=== PATIENT | female | born 1995 | race Caucasian/White ===

== ENCOUNTER 2016-07-13 15:17 | Emergency (ER) | payer OTHER ==
[~2016-07-13] VITALS: Ht 157.5 cm; Wt 63.5 kg
[2016-07-13 15:38] VITALS: BP 128/87
--- NOTE | 2016-07-13 15:53 | NUR ---
PATIENT TO BED 03.
--- NOTE | 2016-07-13 16:09 | NUR ---
Dr. Dickens evaluating patient at bedside.
--- NOTE | 2016-07-13 16:10 | NUR ---
PATIENT PRESENTS TO ED WITH RLQ ABD PAIN X1 HOUR; DENIES V/D; SKIN IS PINK/WARM/DRY; AAOX4 WITH EVEN AND STEADY GAIT; LUNGS CLEAR BL; HR EVEN AND REGULAR; PT DENIES ANY FEVER, CP, SOB, OR COUGH AT THIS TIME; PATIENT STATES PAIN OF 10/10 AT THIS TIME; VSS; PATIENT POSITIONED FOR COMFORT; HOB ELEVATED; BEDRAILS UP X2; BED DOWN. ER MD MADE AWARE OF PT STATUS.
[2016-07-13] MEDS ORDERED: ONDANSETRON 4 MG/2 ML VIAL IVP ONE (16:15)
[2016-07-13] MEDS ORDERED: NACL 0.9% 1,000 ML IV ONE (16:15)
[2016-07-13] MEDS ORDERED: KETOROLAC 30 MG/ML VIAL IVP ONE (16:15)
[2016-07-13 18:10] VITALS: BP 116/63
--- NOTE | 2016-07-13 18:10 | NUR ---
Patient discharged with v/s stable. Written and verbal after care instructions given and explained.Patient alert, oriented and verbalized understanding of instructions. Ambulatory with steady gait. All questions addressed prior to discharge. ID band removed. Patient advised to follow up with PMD. Rx of LACTULOSE, MAGNESIUM CITRATE, TRAMADOL given. Patient educated on indication of medication including possible reaction and side effects. Opportunity to ask questions provided and answered.
== END 2016-07-13 18:10 | disposition home or self-care (01) ==
LOC: MED 15:24
DX: K59.00 Constipation, unspecified (principal); R03.0 Elevated blood-pressure reading, without diagnosis of hypertension
CPT/HCPCS: 74022; 81002; 81025; 96361; 96374; 96375; 99284; J1885; J2405; J7030

== ENCOUNTER 2016-12-07 19:36 | Emergency (ER) | payer OTHER ==
[~2016-12-07] VITALS: Ht 144.8 cm; Wt 61.7 kg
[2016-12-07 19:57] VITALS: BP 139/91
[2016-12-07] MEDS ORDERED: IMI6I PO (20:02)
--- NOTE | 2016-12-07 20:42 | NUR ---
Patient ambulated to bed 08.
--- NOTE | 2016-12-07 20:45 | NUR ---
21 Y/O F C/O HEADACHE, N/V X 1 WK PT SEEN PMD ON 12/04, HAS RX FOR IMITREX, SUDOGEST AND PROMETHAZINE. MED HX: NONE. PT RESTING COMFORTABLE, ER MADE AWARE.
[2016-12-07] MEDS ORDERED: diphenhydrAMINE 50 MG/ML VIAL IM ONE (21:00)
[2016-12-07] MEDS ORDERED: PROCHLORPERAZINE 10 MG/2 ML VIAL IM ONE (21:00)
--- NOTE | 2016-12-07 21:36 | NUR ---
Patient taken to CT via wheelchair per tech.
--- NOTE | 2016-12-07 21:51 | NUR ---
Patient back from CT via wheelchair per tech.
--- NOTE | 2016-12-07 22:01 | NUR ---
PT LAYING IN BED COMFORTABLE, VSS. NO S/S OF DISTRESS NOTED AT THIS MOMENT.
[2016-12-07 22:18] VITALS: BP 118/69
--- NOTE | 2016-12-07 22:18 | NUR ---
Patient discharged with v/s stable. Written and verbal after care instructions given and explained. Patient alert, oriented and verbalized understanding of instructions. Ambulatory with steady gait. All questions addressed prior to discharge. ID band removed. Patient advised to follow up with PMD OR RETURN TO ER IF CONDITION WORSENS. Rx of BENADRYL AND COMPAZINE given. Patient educated on indication of medication including possible reaction and side effects. Opportunity to ask questions provided and answered.
== END 2016-12-07 22:18 | disposition home or self-care (01) ==
LOC: MED 19:36
DX: R51 Headache (principal); R11.2 Nausea with vomiting, unspecified; H53.149 Visual discomfort, unspecified
CPT/HCPCS: 70450; 96372; 99284; J0780; J1200

== ENCOUNTER 2017-05-22 22:45 | Emergency (ER) | payer OTHER ==
[~2017-05-22] VITALS: Ht 134.6 cm; Wt 61.4 kg
[~2017-05-22 22:45] MED LIST: IMI6I PO
[2017-05-22 22:56] VITALS: BP 139/93
--- NOTE | 2017-05-22 23:09 | NUR ---
TO ER BED2
[2017-05-22] MEDS ORDERED: MORPHINE SULFATE 4 MG/ML SYR IVP ONE (23:25)
[2017-05-22] MEDS ORDERED: ONDANSETRON 4 MG/2 ML VIAL IVP ONE (23:25)
[2017-05-22] MEDS ORDERED: NACL 0.9% 1,000 ML IV ONE (23:25)
[2017-05-22 23:53] LABS: HEMATOCRIT 39.5 % (36-48); HEMOGLOBIN 13.2 g/dL (12.0-16.0); MEAN CORPUSCULAR HEMOGLOBIN 28 pg (27-31); MEAN CORPUSCULAR HGB CONC 33 g/dL (33-37); MEAN CORPUSCULAR VOLUME 84 fL (80-94); PLATELET COUNT (AUTO) 307 K/uL (140-450); RED CELL DISTRIBUTION WIDTH 12.8 % (11.6-13.7); WHITE BLOOD COUNT (AUTO) 9.9 K/uL (4.8-10.8)
--- NOTE | 2017-05-23 | NUR ---
PT ARRIVED AT ED WITH FATER C/O UPPER ABDOMINAL AND LOWER BACK PAIN SINCE LAST NIGHT. PT STATES PAIN WITH AMBULATION. ABDOMEN SOFT AND TENDER. VSS. PT DENIES N/V/D AND STATES HAVING NORMAL GI AND HABBITS. PT IN BED IN POC WITH HOB ELEVATED. MD AWARE. CONTINUE TO MONITOR.
[2017-05-23 00:07] LABS: ANION GAP 10.8 (8-16); CARBON DIOXIDE 28.7 mmol/L (21-32); CHLORIDE 103 mmol/L (98-107); GFR ARICAN-AMERICAN 89 mL/min (>90); GLUCOSE 111 mg/dL (74-106); POTASSIUM 3.5 mmol/L (3.5-5.1); SODIUM SERUM 139 mmol/L (136-145); UREA NITROGEN, BLOOD 10 mg/dL (7-18)
[2017-05-23 00:13] LABS: LYMPHOCYTES % (MANUAL) 14 % (20-46); MONOCYTES % (MANUAL) 3 % (5-12)
[2017-05-23 00:19] LABS: ALBUMIN 4.2 g/dL (3.4-5.0); ASPARTATE AMINOTRANSFERASE 15 U/L (15-37); LIPASE 160 U/L (73-393); TOTAL BILIRUBIN 0.3 mg/dL (0.0-1.0)
--- NOTE | 2017-05-23 01:29 | NUR ---
PT URINE NOT COLLECTED. PT UNABLE TO PROVIDE SAMPLE. DR MEEK GAVE ORDER FOR HCG ANALYSIS VIA BLOOD SAMPLE. PT IN BED RESTING WITH HOB ELEVATED. FATER AT BEDSIDE. PAIN DECREASED TO 5/10. A&OX4. AWARE. CONTINUE TO MONITOR.
--- NOTE | 2017-05-23 02:30 | NUR ---
Pt taken to CT via [facility]. Accompanied by
--- NOTE | 2017-05-23 02:50 | NUR ---
pt returned from ct via [facility]
--- NOTE | 2017-05-23 03:05 | NUR ---
pt in bed in poc with HOB elevated. states pain 06/12. fater at bedside. aware. continue to monitor.
[2017-05-23 03:38] LABS: APPEARANCE,URINE CLEAR (CLEAR); BILIRUBIN,URINE NEGATIVE (NEGATIVE); BLOOD, URINE TRACE-I (NEGATIVE); COLOR,URINE YELLOW (YELLOW); LEUKOCYTE ESTERASE ,URINE NEGATIVE (NEGATIVE); NITRITE, URINE NEGATIVE (NEGATIVE); UGLUCOSE NEGATIVE (NEGATIVE)
--- NOTE | 2017-05-23 03:40 | NUR ---
Pt urinated and provided specimen. Lab called for urine pick up operator.
[2017-05-23 03:47] LABS: RBC,URINE 3-10 (FEW) /HPF (0-5); WBC,URINE 0-5 (RARE) /HPF (0-5)
[2017-05-23 03:49] LABS: BARBITURATE, URINE NEGATIVE ng/ml (NEG <=200); BENZODIAZEPINE, URINE NEGATIVE ng/mL (NEG <=200); CANNABINOID, URINE NEGATIVE ng/mL (NEG <=50); COCAINE, URINE NEGATIVE ng/mL (NEG <=300); OPIATE, URINE NEGATIVE ng/mL (NEG <=2000); PHENCYCLIDINE SCREEN,URINE NEGATIVE ng/mL (NEG <=25)
--- NOTE | 2017-05-23 03:50 | NUR ---
at bedside. Performed bedside US of bladder. Awaiting labs. continue to monitor. Pt states she is confortable. Father at bedside. Pt in poc with HOB elevated. Continue to monitor.
[2017-05-23 04:05] VITALS: BP 130/85
--- NOTE | 2017-05-23 04:05 | NUR ---
Patient discharged with v/s stable. Pt states her pain is 0/10 at this time. Written and verbal after care instructions given and explained. Patient verbalized understanding. Ambulatory with steady gait. All questions addressed prior to discharge. Advised to follow up with PMD.
== END 2017-05-23 04:00 | disposition home or self-care (01) ==
LOC: MED 22:45
DX: R10.9 Unspecified abdominal pain (principal); R11.0 Nausea
CPT/HCPCS: 36415; 74177; 80053; 80305; 81001; 81025; 83605; 83690; 84702; 85025; 96361; 96374; 96375; 99285; G0482; J2270; J2405; J7030; Q9967

== ENCOUNTER 2017-10-07 19:31 | Emergency (ER) | payer OTHER ==
[~2017-10-07] VITALS: Ht 154.9 cm; Wt 64.6 kg
[2017-10-07 19:38] VITALS: BP 139/82
--- NOTE | 2017-10-07 19:41 | NUR ---
TO LOBBY A/W BED, LANDEN CHRIS NOTED
--- NOTE | 2017-10-07 21:08 | NUR ---
PT TAKEN TO BED 8
--- NOTE | 2017-10-07 21:29 | NUR ---
DR SANCHEZ AT BEDSIDE EVALUATING PT.
--- NOTE | 2017-10-07 21:47 | NUR ---
PT C/O LUQ PAIN X4 HOURS. ABD IS ROUND, SOFT, NON TENDER, HYPOACTIVE BS X4. PT STATES PAIN 10/0 RADIATING TO LEFT FLANK. NO PMH, NKDA
[2017-10-07 22:10] LABS: APPEARANCE,URINE SL CLOUDY (CLEAR); BILIRUBIN,URINE NEGATIVE (NEGATIVE); BLOOD, URINE TRACE-I (NEGATIVE); COLOR,URINE YELLOW (YELLOW); LEUKOCYTE ESTERASE ,URINE NEGATIVE (NEGATIVE); NITRITE, URINE NEGATIVE (NEGATIVE); PH,URINE 7.5 (5.0-9.0); UGLUCOSE NEGATIVE (NEGATIVE)
[2017-10-07] MEDS ORDERED: KETOROLAC 30 MG/ML VIAL IM ONE (22:10)
[2017-10-07] MEDS ORDERED: ONDANSETRON 4 MG ODT PO ONE (22:10)
[2017-10-07 22:38] LABS: ANION GAP 11.8 (8-16); CARBON DIOXIDE 29.5 mmol/L (21-32); CREATININE 0.8 mg/dL (0.6-1.3); POTASSIUM 4.3 mmol/L (3.5-5.1)
[2017-10-07 22:41] LABS: RBC,URINE 3-10 (FEW) /HPF (0-5); WBC,URINE 0-5 (RARE) /HPF (0-5)
[2017-10-07 22:43] LABS: ALBUMIN 3.9 g/dL (3.4-5.0); TOTAL BILIRUBIN 0.1 mg/dL (0.0-1.0)
[2017-10-07 22:46] LABS: BASOPHILS % (AUTO) 0.3 % (0.0-2.0); EOSINOPHILS # (AUTO) 0.1 K/uL (0-0.4); EOSINOPHILS % (AUTO) 0.7 % (0.0-4.0); HEMATOCRIT 39.7 % (36-48); HEMOGLOBIN 12.9 g/dL (12.0-16.0); LYMPHOCYTES # (AUTO) 1.3 K/uL (2.5-16.5); LYMPHOCYTES % (AUTO) 16.9 % (20.5-51.1); MEAN CORPUSCULAR HEMOGLOBIN 27 pg (27-31); MEAN CORPUSCULAR HGB CONC 32 g/dL (33-37); MEAN CORPUSCULAR VOLUME 84.2 fL (80-94); MONOCYTES # (AUTO) 0.5 K/uL (0.8-1.0); MONOCYTES % (AUTO) 6.6 % (1.7-9.3); NEUTROPHILS % (AUTO) 75.5 % (42.2-75.2); PLATELET COUNT (AUTO) 332 K/uL (140-450); RED BLOOD CELL COUNT(AUTO) 4.71 MIL/uL (4.20-5.40); RED CELL DISTRIBUTION WIDTH 13.8 % (11.6-13.7); WHITE BLOOD COUNT (AUTO) 7.9 K/uL (4.8-10.8)
--- NOTE | 2017-10-07 22:52 | NUR ---
pt ambulated to bathroom even steady gait.
[2017-10-08 00:21] VITALS: BP 130/80
--- NOTE | 2017-10-08 00:22 | NUR ---
Patient discharged with v/s stable. Written and verbal after care instructions given and explained. Patient alert, oriented and verbalized understanding of instructions. Ambulatory with steady gait. All questions addressed prior to discharge. ID band removed. Patient advised to follow up with PMD. Rx of MYLANTA given. Patient educated on indication of medication including possible reaction and side effects. Opportunity to ask questions provided and answered.
== END 2017-10-08 00:22 | disposition home or self-care (01) ==
LOC: MED 19:31
DX: R10.12 Left upper quadrant pain (principal)
CPT/HCPCS: 36415; 74176; 80053; 81001; 81025; 83690; 84703; 85025; 87086; 96372; 99285; J1885; S0119

== ENCOUNTER 2019-04-10 04:38 | Emergency (ER) | payer OTHER ==
[~2019-04-10] VITALS: Ht 149.9 cm; Wt 68.0 kg
[2019-04-10 04:46] VITALS: BP 136/88
--- NOTE | 2019-04-10 04:46 | NUR ---
TO BED # 12 AMBULATORY
--- NOTE | 2019-04-10 05:00 | NUR ---
PATIENT PRESENTS TO ED WITH ABD PAIN X 2 DAYS. PT STATES EPIGASTRIC PAIN THAT RADIATES TO BI LATERAL FLANK. PT STATES SHE HAS BURING WHEN URINATING. PT DENIES FREQUENCY OR URGENCY. PT DENIES LMP 03/22. PT STATES N/V DENIES DIARRHEA. ; SKIN IS PINK/WARM/DRY; AAOX4 WITH EVEN AND STEADY GAIT; LUNGS CLEAR BL; HR EVEN AND REGULAR; PT DENIES ANY FEVER, CP, SOB, OR COUGH AT THIS TIME; PATIENT STATES PAIN OF 10/10 AT THIS TIME; VSS; PATIENT POSITIONED FOR COMFORT; HOB ELEVATED; BEDRAILS UP X2; BED DOWN. ER MD MADE AWARE OF PT STATUS.
[2019-04-10] MEDS ORDERED: NACL 0.9% 1,000 ML IV ONE (05:50)
[2019-04-10] MEDS ORDERED: DICYCLOMINE HCL LIQUID 20 MG, ALUMINUM HYD/MAG/SIMETHICONE 30 ML, LIDOCAINE VISCOUS 2% ... PO ONE ×3 (05:50)
[2019-04-10] MEDS ORDERED: ONDANSETRON 4 MG/2 ML VIAL IVP ONE (06:10)
[2019-04-10 06:21] LABS: HEMOGLOBIN 13.2 g/dL (12.0-16.0); LYMPHOCYTES # (AUTO) 0.4 K/uL (2.5-16.5); MONOCYTES # (AUTO) 0.4 K/uL (0.8-1.0)
[2019-04-10 06:28] LABS: BASOPHILS % (AUTO) 0.1 % (0.0-2.0); EOSINOPHILS % (AUTO) 0.1 % (0.0-4.0); LYMPHOCYTES % (AUTO) 4.1 % (20.5-51.1); MEAN CORPUSCULAR HEMOGLOBIN 27 pg (27-31); MEAN CORPUSCULAR HGB CONC 32 g/dL (33-37); MEAN CORPUSCULAR VOLUME 84.2 fL (80-94); NEUTROPHILS # (AUTO) 9.5 K/uL (1.8-7.7); NEUTROPHILS % (AUTO) 91.7 % (42.2-75.2); PLATELET COUNT (AUTO) 335 K/uL (140-450); RED BLOOD CELL COUNT(AUTO) 4.86 MIL/uL (4.20-5.40); WHITE BLOOD COUNT (AUTO) 10.4 K/uL (4.8-10.8)
[2019-04-10 06:32] LABS: ALBUMIN 3.9 g/dL (3.4-5.0); ANION GAP 14.9 (8-16); CARBON DIOXIDE 25.8 mmol/L (21-32); CREATININE 0.7 mg/dL (0.6-1.3); POTASSIUM 3.7 mmol/L (3.5-5.1); TOTAL BILIRUBIN 0.5 mg/dL (0.0-1.0)
--- NOTE | 2019-04-10 07:13 | NUR ---
REPORT GIVEN TO AARON OSBORNE
--- NOTE | 2019-04-10 07:45 | NUR ---
Patient discharged with v/s stable. Written and verbal after care instructions given to parents and patient, and explained. Patient verbalized understanding. Ambulatory with steady gait. All questions addressed prior to discharge. Advised to follow up with PMD.
[2019-04-10 07:46] VITALS: BP 136/88
== END 2019-04-10 07:45 | disposition home or self-care (01) ==
LOC: MED 04:38
DX: R10.13 Epigastric pain (principal); R11.2 Nausea with vomiting, unspecified; E07.9 Disorder of thyroid, unspecified; Z79.899 Other long term (current) drug therapy
CPT/HCPCS: 36415; 80053; 81002; 82150; 83690; 84703; 85025; 96361; 96374; 99283; J2405

== ENCOUNTER 2019-08-29 13:45 | Emergency (ER) | payer OTHER ==
[~2019-08-29] VITALS: Ht 167.6 cm; Wt 72.6 kg
--- NOTE | 2019-08-29 13:45 | NUR ---
PT MEETS COVID CRITERIA. INSTRUCTED TO WAIT IN TENT
--- NOTE | 2019-08-29 13:50 | NUR ---
24 Y/O FEMALE C/O COUGH/SOB X3 DAYS. PT REPORTS BODY ACHES AND SUBJECTIVE FEVER, STATES "I DONT FEEL WELL". RESP EVEN AND UNLABORED. LUNG SOUNDS CLEAR IN BILAT LOBES. NO RESP DISTRESS NOTED AT THIS TIME. DENIES N/V/D. DENIES ANY CONTACT WITH POSSIBLE COVID PTS. SKIN WARM/DRY. PT IS CURRENTLY IN COVID TENT AT THIS TIME. AAOX4. CAP REFILL <3. PMH: CHILDHOOD ASTHMA NKA
[2019-08-29 13:51] VITALS: BP 136/80
[2019-08-29] MEDS ORDERED: KETOROLAC 30 MG/ML VIAL IM ONE (14:25)
[2019-08-29 14:37] VITALS: BP 136/80
--- NOTE | 2019-08-29 14:37 | NUR ---
Patient discharged with v/s stable. Written and verbal after care instructions given and explained. Patient verbalized understanding. Ambulatory with steady gait. All questions addressed prior to discharge. Advised to follow up with PMD.
== END 2019-08-29 14:37 | disposition home or self-care (01) ==
LOC: MED 13:45
DX: J06.9 Acute upper respiratory infection, unspecified (principal); J45.909 Unspecified asthma, uncomplicated; E07.9 Disorder of thyroid, unspecified; Z79.899 Other long term (current) drug therapy
CPT/HCPCS: 96372; 99283; J1885

== ENCOUNTER 2019-10-12 20:29 | Emergency (ER) | payer OTHER ==
[~2019-10-12] VITALS: Ht 149.9 cm; Wt 65.8 kg
[2019-10-12 20:36] VITALS: BP 147/96
--- NOTE | 2019-10-12 20:41 | NUR ---
PT AMBULATED TO BED 7 WITH STEADY GAIT
[2019-10-12] MEDS ORDERED: LIDOCAINE MPF 1% 10 MG/ML VIAL INJ ONE (20:45)
--- NOTE | 2019-10-12 20:45 | NUR ---
24F PT PRESENTS TO ED WITH C/O RT HALLUX PAIN. TOE NAIL PARTIALLY COMING OFF S/P GETTING HIT BY THE CORNER EDGE OF BATHROOM DOOR. RR EVEN AND UNLABORED. DENIES SOB/COUGH. NEGATIVE FOR COVID SCREENING. PMHX; DENIES RX: DENIES
--- NOTE | 2019-10-12 20:50 | NUR ---
IMCHAEL MCNULTY AT BEDSIDE
[2019-10-12 20:59] VITALS: BP 147/96
--- NOTE | 2019-10-12 21:13 | NUR ---
Patient discharged with v/s stable. Written and verbal after care instructions given and explained. Patient alert, oriented and verbalized understanding of instructions. Ambulatory with steady gait. All questions addressed prior to discharge. ID band removed. Patient advised to follow up with PMD. Rx of MOTRIN AND NORCO given. Patient educated on indication of medication including possible reaction and side effects. Opportunity to ask questions provided and answered.
== END 2019-10-12 21:13 | disposition home or self-care (01) ==
LOC: MED 20:29
DX: L60.0 Ingrowing nail (principal); E07.9 Disorder of thyroid, unspecified; J45.909 Unspecified asthma, uncomplicated; Z79.899 Other long term (current) drug therapy
CPT/HCPCS: 99283; J2001

== ENCOUNTER 2021-03-31 12:09 | Emergency (ER) | payer OTHER ==
[~2021-03-31] VITALS: Ht 149.9 cm; Wt 76.7 kg
[2021-03-31 12:22] VITALS: BP 142/91
--- NOTE | 2021-03-31 12:28 | NUR ---
PT AMBULATED BACK TO LOBBY AT THIS TIME.
--- NOTE | 2021-03-31 13:09 | NUR ---
URINE IN DIRTY UTILITY
--- NOTE | 2021-03-31 13:22 | NUR ---
PT AMBULATED TO ER BED 12
--- NOTE | 2021-03-31 13:35 | NUR ---
26 Y/O F BIB UNCLE FROM HOME, C/O EPIGASTRIC PAIN FOR 2 DAYS. BURNING SENSATION WITH N/V/D, DIARRHEA BM 2 HOURS PRIOR TO ARRIVAL. DENIES DYSURIA, HEMATURIA. DENIES CP, SOB, SORE THROAT, COUGH OR FEVERS. DENIES ANYONE IN HOUSEHOLD SICK WITH SAME SYMPTOMS AT THIS TIME. PT STATES 10/10 PAIN. ABD SOFT NON TENDER. PMH: HYPOTHYROID NKA MED: TYLENOL, LEVOTHYROXINE
--- NOTE | 2021-03-31 14:06 | NUR ---
DR VILLALOBOS AT BEDSIDE EXAMINING PT
[2021-03-31] MEDS ORDERED: ONDANSETRON 4 MG ODT PO ONE (14:15)
[2021-03-31] MEDS ORDERED: FAMOTIDINE 20 MG TAB PO ONE (14:15)
[2021-03-31] MEDS ORDERED: KETOROLAC 30 MG/ML VIAL IM ONE (14:15)
[2021-03-31 14:29] LABS: BASOPHILS % (AUTO) 0.1 % (0.0-2.0); EOSINOPHILS % (AUTO) 0.5 % (0.0-4.0); HEMATOCRIT 38.5 % (36-48); HEMOGLOBIN 12.5 g/dL (12.0-16.0); LYMPHOCYTES # (AUTO) 0.8 K/uL (2.5-16.5); MEAN CORPUSCULAR HEMOGLOBIN 27 pg (27-31); MEAN CORPUSCULAR HGB CONC 33 g/dL (33-37); MONOCYTES # (AUTO) 0.4 K/uL (0.8-1.0); MONOCYTES % (AUTO) 4.4 % (1.7-9.3); NEUTROPHILS # (AUTO) 7.2 K/uL (1.8-7.7); PLATELET COUNT (AUTO) 351 K/uL (140-450); RED CELL DISTRIBUTION WIDTH 14.7 % (11.6-13.7); WHITE BLOOD COUNT (AUTO) 8.4 K/uL (4.8-10.8)
--- NOTE | 2021-03-31 14:30 | NUR ---
ULTRASOUND AT BEDSIDE
[2021-03-31 14:43] LABS: ALBUMIN 3.7 g/dL (3.4-5.0); ANION GAP 12.8 (8-16); CARBON DIOXIDE 27.9 mmol/L (21-32); CREATININE 0.8 mg/dL (0.6-1.3); POTASSIUM 3.7 mmol/L (3.5-5.1); TOTAL BILIRUBIN 0.2 mg/dL (0.0-1.0)
[2021-03-31] MEDS ORDERED: ONDA-188 PO (15:19)
[2021-03-31] MEDS ORDERED: FAMO-92 PO (15:19)
[2021-03-31 15:30] VITALS: BP 142/91
--- NOTE | 2021-03-31 15:31 | NUR ---
Patient discharged with v/s stable. Written and verbal after care instructions given and explained. Patient alert, oriented and verbalized understanding of instructions. Ambulatory with steady gait. All questions addressed prior to discharge. ID band removed. Rx of PEPCID AND ZOFRAN given.
[2021-03-31] MEDS ORDERED: ACET-8386 PO (23:01)
== END 2021-03-31 15:30 | disposition home or self-care (01) ==
LOC: MED 12:09
DX: K29.70 Gastritis, unspecified, without bleeding (principal); J45.901 Unspecified asthma with (acute) exacerbation; E06.9 Thyroiditis, unspecified
CPT/HCPCS: 36415; 76705; 80053; 81002; 81025; 83690; 85025; 96372; 99284; J1885; Q0092; Q0162

== ENCOUNTER 2021-03-31 20:40 | Emergency (ER) | payer OTHER ==
[~2021-03-31] VITALS: Ht 152.4 cm; Wt 76.7 kg
[~2021-03-31 20:40] MED LIST changes: +FAMO-92 PO; +ONDA-188 PO
[2021-03-31 20:50] VITALS: BP 142/90
--- NOTE | 2021-03-31 20:53 | NUR ---
TO LOBBY A/W BED AMBULATORY
[2021-03-31] MEDS ORDERED: FAMOTIDINE 20 MG TAB PO ONE (21:05)
[2021-03-31] MEDS ORDERED: ALUMINUM HYD/MAG/SIMETHICONE 30 ML UDC PO ONE (21:05)
[2021-03-31] MEDS ORDERED: ONDANSETRON 4 MG ODT PO ONE ×2 (21:25→22:35)
[2021-03-31] MEDS ORDERED: MORPHINE SULFATE 4 MG/ML SYR IM ONE (22:35)
[2021-03-31] MEDS ORDERED: ALUMINUM HYD/MAG/SIMETHICONE 30 ML UDC ONE (22:55)
[2021-03-31] MEDS ORDERED: FAMOTIDINE 20 MG TAB ONE (22:56)
[2021-03-31] MEDS ORDERED: ACET-8386 PO (23:01)
--- NOTE | 2021-03-31 23:44 | NUR ---
PT IS A 26 Y/O F BIB FATHER FOR VOMITING/NAUSEA. PT WAS SEEN EARLIER TODAY FOR SAME THING AND STATED ONCE SHE RETURNED HOME AND MED WORE OFF SHE FELT WORSE. PT HAS BEEN DRINKING ELECTORLYTES BUT THROWS UP RIGHT AFTER. PT HAS PAIN RADIATING FROM UPPER ABDOMEN TO BACK. PT HAS NKA AND NO PREVIOUS MEDICAL HX.
--- NOTE | 2021-03-31 23:54 | NUR ---
Patient discharged with v/s stable. Written and verbal after care instructions given and explained. Patient alert, oriented and verbalized understanding of instructions. Ambulatory with steady gait. All questions addressed prior to discharge. ID band removed. Patient advised to follow up with PMD. Rx of HYDROCODON/ACETAMETAPHIN given. Opportunity to ask questions provided and answered.
[2021-03-31 23:57] VITALS: BP 135/73
--- NOTE | 2021-04-01 00:37 | NUR ---
The patient's care was reviewed and supervised by BREONNA JOHNSON RN.
== END 2021-03-31 23:54 | disposition home or self-care (01) ==
LOC: MED 20:40
DX: K29.70 Gastritis, unspecified, without bleeding (principal); J45.909 Unspecified asthma, uncomplicated; E06.9 Thyroiditis, unspecified
CPT/HCPCS: 96372; 99284; J2270; Q0162

== ENCOUNTER 2021-06-29 11:34 | Emergency (ER) | payer OTHER ==
[~2021-06-29] VITALS: Ht 154.9 cm; Wt 75.7 kg
[~2021-06-29 11:34] MED LIST changes: +ACET-8386 PO
[2021-06-29 11:38] VITALS: BP 146/99
--- NOTE | 2021-06-29 11:44 | NUR ---
Pt ambulated to restroom for urine sample attempt
--- NOTE | 2021-06-29 11:45 | NUR ---
26/F BIB SELF WITH C/O ABDOMINAL PAIN, N/V/D SINCE THIS MORNING. STATES SHE HAS HAD 3 EPISODES OF VOMITING, REPORTS TAKING PEPTO, ZOFRAN AND PEPCID WITH NO RELIEF. DENIES CP, DYSURIA OR FEVERS. MEDHX: HYPOTHYROIDISM ALLERGIES: NKA
[2021-06-29] MEDS ORDERED: NACL 0.9% 1,000 ML IV ONE (12:05)
[2021-06-29] MEDS ORDERED: METOCLOPRAMIDE 10 MG/2 ML INJ VIAL IVP ONE (12:05)
[2021-06-29] MEDS ORDERED: FAMOTIDINE 20 MG/2 ML VIAL IVP ONE (12:05)
[2021-06-29 12:14] LABS: APPEARANCE,URINE SL CLOUDY (CLEAR); BILIRUBIN,URINE NEGATIVE (NEGATIVE); BLOOD, URINE 3+ (NEGATIVE); COLOR,URINE YELLOW (YELLOW); LEUKOCYTE ESTERASE ,URINE NEGATIVE (NEGATIVE); NITRITE, URINE NEGATIVE (NEGATIVE); UGLUCOSE NEGATIVE (NEGATIVE)
[2021-06-29 12:25] LABS: BASOPHILS % (AUTO) 0.3 % (0.0-2.0); EOSINOPHILS % (AUTO) 0.2 % (0.0-4.0); HEMATOCRIT 37.9 % (36-48); HEMOGLOBIN 12.4 g/dL (12.0-16.0); LYMPHOCYTES # (AUTO) 0.9 K/uL (2.5-16.5); MEAN CORPUSCULAR HEMOGLOBIN 27 pg (27-31); MEAN CORPUSCULAR HGB CONC 33 g/dL (33-37); MEAN CORPUSCULAR VOLUME 82.3 fL (80-94); MONOCYTES # (AUTO) 0.4 K/uL (0.8-1.0); MONOCYTES % (AUTO) 3.7 % (1.7-9.3); NEUTROPHILS # (AUTO) 9.1 K/uL (1.8-7.7); NEUTROPHILS % (AUTO) 86.8 % (42.2-75.2); PLATELET COUNT (AUTO) 357 K/uL (140-450); RED BLOOD CELL COUNT(AUTO) 4.61 MIL/uL (4.20-5.40); RED CELL DISTRIBUTION WIDTH 15.3 % (11.6-13.7); WHITE BLOOD COUNT (AUTO) 10.5 K/uL (4.8-10.8)
--- NOTE | 2021-06-29 12:30 | NUR ---
PT RESTING IN BED, COMFORT NEEDS MET
[2021-06-29 12:46] LABS: ALBUMIN 3.9 g/dL (3.4-5.0); ANION GAP 12.4 (8-16); CARBON DIOXIDE 28.4 mmol/L (21-32); CREATININE 0.7 mg/dL (0.6-1.3); POTASSIUM 3.8 mmol/L (3.5-5.1); TOTAL BILIRUBIN 0.3 mg/dL (0.0-1.0)
[2021-06-29] MEDS ORDERED: ONDA-188 PO (13:23)
[2021-06-29] MEDS ORDERED: FAMO-90 PO (13:23)
[2021-06-29] MEDS ORDERED: NITR100C7 PO (13:23)
[2021-06-29] MEDS ORDERED: ACETAMINOPHEN EXTRA STRENGTH 500 MG TAB PO ONE (13:25)
[2021-06-29] MEDS ORDERED: ALUMINUM HYD/MAG/SIMETHICONE 30 ML UDC PO ONE (13:25)
[2021-06-29 13:59] VITALS: BP 137/75
--- NOTE | 2021-06-29 13:59 | NUR ---
Patient discharged with v/s stable. Written and verbal after care instructions given and explained. Patient alert, oriented and verbalized understanding of instructions. Ambulatory with steady gait. All questions addressed prior to discharge. ID band removed. Patient advised to follow up with PMD. Rx of MACROBID, PEPCID, ZOFRAN given. Patient educated on indication of medication including possible reaction and side effects. Opportunity to ask questions provided and answered.
== END 2021-06-29 13:59 | disposition home or self-care (01) ==
LOC: MED 11:34
DX: K29.70 Gastritis, unspecified, without bleeding (principal); R11.10 Vomiting, unspecified
CPT/HCPCS: 36415; 80053; 81001; 81025; 83690; 85025; 87086; 96361; 96374; 96375; 99284; J2765; J3490; J7030

== ENCOUNTER 2021-07-09 13:47 | Emergency (ER) | payer OTHER ==
[~2021-07-09] VITALS: Ht 149.9 cm; Wt 73.0 kg
[~2021-07-09 13:47] MED LIST changes: +FAMO-90 PO; +NITR100C7 PO
[2021-07-09 14:06] VITALS: BP 139/95
[2021-07-09] MEDS ORDERED: KETOROLAC 30 MG/ML VIAL IVP ONE (14:25)
[2021-07-09] MEDS ORDERED: ONDANSETRON 4 MG/2 ML VIAL IVP ONE (14:25)
[2021-07-09] MEDS ORDERED: NACL 0.9% 1,000 ML IV SCH (14:25)
[2021-07-09 14:36] LABS: BASOPHILS # (AUTO) 0.1 K/uL (0.00-0.22); BASOPHILS % (AUTO) 1.1 % (0.0-2.0); EOSINOPHILS % (AUTO) 0.6 % (0.0-4.0); HEMATOCRIT 36.2 % (36-48); HEMOGLOBIN 11.8 g/dL (12.0-16.0); LYMPHOCYTES # (AUTO) 1.5 K/uL (2.5-16.5); LYMPHOCYTES % (AUTO) 21.9 % (20.5-51.1); MEAN CORPUSCULAR HEMOGLOBIN 27 pg (27-31); MEAN CORPUSCULAR HGB CONC 33 g/dL (33-37); MEAN CORPUSCULAR VOLUME 81.5 fL (80-94); MONOCYTES # (AUTO) 0.4 K/uL (0.8-1.0); MONOCYTES % (AUTO) 6.4 % (1.7-9.3); NEUTROPHILS # (AUTO) 4.8 K/uL (1.8-7.7); PLATELET COUNT (AUTO) 368 K/uL (140-450); RED BLOOD CELL COUNT(AUTO) 4.44 MIL/uL (4.20-5.40); RED CELL DISTRIBUTION WIDTH 14.9 % (11.6-13.7); WHITE BLOOD COUNT (AUTO) 6.9 K/uL (4.8-10.8)
--- NOTE | 2021-07-09 14:39 | NUR ---
US AT PATIENT BEDSIDE.
[2021-07-09 15:02] LABS: APPEARANCE,URINE CLEAR (CLEAR); BILIRUBIN,URINE NEGATIVE (NEGATIVE); BLOOD, URINE 3+ (NEGATIVE); LEUKOCYTE ESTERASE ,URINE NEGATIVE (NEGATIVE); NITRITE, URINE NEGATIVE (NEGATIVE); UGLUCOSE NEGATIVE (NEGATIVE)
[2021-07-09 15:07] LABS: COLOR,URINE STRAW (YELLOW)
[2021-07-09 15:18] LABS: ALBUMIN 3.8 g/dL (3.4-5.0); ANION GAP 13.5 (8-16); CARBON DIOXIDE 26.4 mmol/L (21-32); CREATININE 0.7 mg/dL (0.6-1.3); POTASSIUM 3.9 mmol/L (3.5-5.1); TOTAL BILIRUBIN 0.3 mg/dL (0.0-1.0)
[2021-07-09 15:24] LABS: RBC,URINE NONE SEEN /HPF (0-5); WBC,URINE 0-5 /HPF (0-5)
--- NOTE | 2021-07-09 15:30 | NUR ---
26/F BIB MOTHER, AA&OX4, AMBULATORY W/ STEADY GAIT; PRESENTS TO ED WITH C/O R SIDED FLANK AND BACK PAIN10/10 X 2 DAYS. PATIENT STATES PAIN IS "CONSTANT, SHARP AND FEELS LIKE A BURNING SENSATION." PATIENT TOOK TYLENOL TODAY W/O RELIEF. +CHILLS, NAUSEA, CONSTIPATION. PATIENT DENIES CP, SOB, FEVER, DYSURIA, HEMATURIA, TRAUMA/INJURY. PMH: HYPOTHYROID MEDS: LEVOTHYROXINE NKA
[2021-07-09] MEDS ORDERED: IBUP-2213 PO (15:39)
[2021-07-09] MEDS ORDERED: ONDA8TAB87 PO (15:39)
[2021-07-09] MEDS ORDERED: ACET-8386 PO (15:39)
== END 2021-07-09 16:26 | disposition home or self-care (01) ==
LOC: MED 13:47
DX: R10.11 Right upper quadrant pain (principal); R11.0 Nausea; R68.83 Chills (without fever); J45.909 Unspecified asthma, uncomplicated; E03.9 Hypothyroidism, unspecified; Z79.899 Other long term (current) drug therapy
CPT/HCPCS: 36415; 76705; 80053; 81001; 81025; 83690; 85025; 96361; 96374; 96375; 99284; J1885; J2405; J7030; Q0092

== ENCOUNTER 2021-07-29 05:08 | Emergency (ER) | payer OTHER ==
[~2021-07-29] VITALS: Ht 154.9 cm; Wt 70.3 kg
[~2021-07-29 05:08] MED LIST changes: +IBUP-2213 PO; +ONDA8TAB87 PO
[2021-07-29 05:20] VITALS: BP 139/80
--- NOTE | 2021-07-29 05:20 | NUR ---
TO BED AMBULATORY
[2021-07-29] MEDS ORDERED: KETOROLAC 15 MG/ML VIAL IVP ONE (05:45)
[2021-07-29] MEDS ORDERED: DICYCLOMINE HCL LIQUID 20 MG, ALUMINUM HYD/MAG/SIMETHICONE 30 ML, LIDOCAINE VISCOUS 2% ... PO ONE ×3 (05:45)
[2021-07-29] MEDS ORDERED: ONDANSETRON 4 MG/2 ML VIAL IVP ONE ×2 (05:45)
--- NOTE | 2021-07-29 05:45 | NUR ---
SEEN AND EXAMINED BY MICHAEL, WITH ORDERS AND CARRIED OUT.
--- NOTE | 2021-07-29 05:48 | NUR ---
MEDICATED PER ERMDS ORDER, TOLERATED WELL.
[2021-07-29] MEDS ORDERED: ALUMINUM HYD/MAG/SIMETHICONE 30 ML UDC ONE (05:51)
[2021-07-29] MEDS ORDERED: DICYCLOMINE HCL LIQUID 10 MG/5 ML UDC ONE (05:51)
[2021-07-29 06:00] LABS: BASOPHILS % (AUTO) 0.2 % (0.0-2.0); EOSINOPHILS % (AUTO) 0.1 % (0.0-4.0); HEMATOCRIT 37.3 % (36-48); HEMOGLOBIN 12.2 g/dL (12.0-16.0); LYMPHOCYTES # (AUTO) 0.4 K/uL (2.5-16.5); LYMPHOCYTES % (AUTO) 7.3 % (20.5-51.1); MEAN CORPUSCULAR HEMOGLOBIN 26 pg (27-31); MEAN CORPUSCULAR HGB CONC 33 g/dL (33-37); MEAN CORPUSCULAR VOLUME 80.3 fL (80-94); MONOCYTES # (AUTO) 0.2 K/uL (0.8-1.0); MONOCYTES % (AUTO) 4.1 % (1.7-9.3); NEUTROPHILS % (AUTO) 88.3 % (42.2-75.2); PLATELET COUNT (AUTO) 346 K/uL (140-450); RED BLOOD CELL COUNT(AUTO) 4.65 MIL/uL (4.20-5.40); RED CELL DISTRIBUTION WIDTH 14.6 % (11.6-13.7); WHITE BLOOD COUNT (AUTO) 5.7 K/uL (4.8-10.8)
[2021-07-29] MEDS ORDERED: NACL 0.9% 1,000 ML IV ONE (06:15)
--- NOTE | 2021-07-29 06:25 | NUR ---
Dr. Lubin examining patient.
[2021-07-29 06:46] LABS: APPEARANCE,URINE SL CLOUDY (CLEAR); BILIRUBIN,URINE NEGATIVE (NEGATIVE); BLOOD, URINE TRACE-L (NEGATIVE); COLOR,URINE YELLOW (YELLOW); LEUKOCYTE ESTERASE ,URINE NEGATIVE (NEGATIVE); NITRITE, URINE NEGATIVE (NEGATIVE); PH,URINE 7.5 (5.0-9.0); UGLUCOSE NEGATIVE (NEGATIVE)
[2021-07-29 06:56] LABS: ALBUMIN 3.8 g/dL (3.4-5.0); ANION GAP 15.5 (8-16); CARBON DIOXIDE 24.5 mmol/L (21-32); CREATININE 0.7 mg/dL (0.6-1.3); TOTAL BILIRUBIN 0.5 mg/dL (0.0-1.0)
--- NOTE | 2021-07-29 07:20 | NUR ---
RECEIVED PT IN BED LYING ON THEIR SIDE, A/OX4, RESPIRATIONS EVEN AND UNLABORED, CONT C/O OF NAUSEA AND ABD PAIN 8/10 DESCRIBED SHARP, EPIGASTRIC PAIN. PT MEDICATED WITH ZOFRAN 4MG AT 0546H.
--- NOTE | 2021-07-29 07:25 | NUR ---
report given to Bradly jacobson
--- NOTE | 2021-07-29 07:27 | NUR ---
PT AMBULATED TO RESTROOM WITH STEADY GAIT
[2021-07-29 07:32] LABS: TRICHOMONAS,URINE None Seen /HPF (None Seen); YEAST,URINE Few /HPF (None Seen)
[2021-07-29 07:33] LABS: CALCIUM OXALATE CRYSTALS,UR None Seen /HPF (None Seen); TRIPLE PHOSPHATE CRYSTAL,UR None Seen /HPF (None Seen); URIC ACID CRYSTALS,URINE None Seen /HPF (None Seen)
[2021-07-29 07:34] LABS: OTHER CRYSTALS,URINE None Seen /HPF (None Seen)
[2021-07-29 07:35] LABS: COARSE GRANULAR CASTS,URINE None Seen /LPF (None Seen); FINE GRANULAR CASTS,URINE None Seen /LPF (None Seen); HYALINE CASTS, URINE None Seen /LPF (None Seen); URINE AMORPHOUS URATE None Seen /HPF (None Seen); WAXY CASTS,URINE None Seen /LPF (None Seen)
[2021-07-29 07:36] LABS: OTHER CASTS, URINE None Seen /LPF (None Seen); RED BLOOD CELL CASTS,URINE None Seen /LPF (None Seen)
[2021-07-29] MEDS ORDERED: IBUP-2213 PO (07:46)
[2021-07-29] MEDS ORDERED: PROM25TA27 PO (07:46)
[2021-07-29] MEDS ORDERED: CIPR500T4 PO (07:46)
[2021-07-29 07:52] VITALS: BP 119/75
--- NOTE | 2021-07-29 07:52 | NUR ---
Patient discharged with v/s stable. Written and verbal after care instructions given and explained. Patient alert, oriented and verbalized understanding of instructions. Ambulatory with steady gait. All questions addressed prior to discharge. ID band removed. Patient advised to follow up with PMD. Rx of CIPRO, PROMETHAZINE, IBUPROFEN given. Patient educated on indication of medication including possible reaction and side effects. Opportunity to ask questions provided and answered.
== END 2021-07-29 07:52 | disposition home or self-care (01) ==
LOC: MED 05:08
DX: N39.0 Urinary tract infection, site not specified (principal); R11.2 Nausea with vomiting, unspecified; J45.909 Unspecified asthma, uncomplicated; E03.9 Hypothyroidism, unspecified; Z79.899 Other long term (current) drug therapy; Z79.891 Long term (current) use of opiate analgesic; Z79.1 Long term (current) use of non-steroidal anti-inflammatories (NSAID); Z79.2 Long term (current) use of antibiotics
CPT/HCPCS: 36415; 80053; 81001; 81025; 83690; 85025; 87086; 96361; 96372; 96374; 99284; J1885; J2405; J7030

== ENCOUNTER 2022-03-18 21:43 | Emergency (ER) | payer OTHER ==
[~2022-03-18 21:43] MED LIST changes: +CIPR500T4 PO; +PROM25TA27 PO
--- NOTE | 2022-03-18 23:10 | NUR ---
Called - no show in lobby or outside.
--- NOTE | 2022-03-18 23:47 | NUR ---
PATIENT LEFT WITHOUT BEING SEEN BY DR. Birch. NO FURTHER CARE PROVIDED FOR PATIENT.
--- NOTE | 2022-03-18 23:47 | NUR ---
Called - no show in lobby or outside.
[2022-03-19] MEDS ORDERED: BEN10 PO (10:36)
[2022-03-19] MEDS ORDERED: SUCR1TAB35 PO (10:36)
[2022-03-19] MEDS ORDERED: OMEP40EC24 PO (10:36)
== END 2022-03-18 23:47 | disposition left against medical advice (07) ==
LOC: MED 21:43
DX: R10.9 Unspecified abdominal pain (principal); Z53.21 Procedure and treatment not carried out due to patient leaving prior to being seen by health care provider

== ENCOUNTER 2022-03-19 06:53 | Emergency (ER) | payer OTHER ==
[~2022-03-19] VITALS: Ht 152.4 cm; Wt 66.7 kg
[~2022-03-19 06:53] MED LIST changes: -ACET-8386 PO; +ACET-8905 PO
[2022-03-19 06:58] VITALS: BP 144/93
--- NOTE | 2022-03-19 07:06 | NUR ---
PT AMB TO ER BED 09.
[2022-03-19] MEDS ORDERED: ONDANSETRON 4 MG/2 ML VIAL IVP ONE (07:20)
[2022-03-19] MEDS ORDERED: MORPHINE SULFATE 4 MG/ML SYR IVP ONE ×2 (07:20→09:20)
--- NOTE | 2022-03-19 07:30 | NUR ---
27/F WALKED IN C/O EPIGASTRIC PAIN ONSET 1 DAY. DENIES NVD. AFEBRILE AT TRIAGE. DENIES FALL OR TRAUMA. DENIES BLOOD IN STOOL. AAO4, AMBULATORY, ON MONITOR, BLOOD DRAWN BY [employer] SWITCHBOARD OPERATOR. PMHx : Hypothyroid, Chronic back pain, Chronic neck pain
--- NOTE | 2022-03-19 07:35 | NUR ---
IV ESTABLISHED TO LEFT AC WITH 20G
[2022-03-19 07:52] LABS: BASOPHILS % (AUTO) 0.6 % (0.0-2.0); EOSINOPHILS # (AUTO) 0.1 K/uL (0-0.4); EOSINOPHILS % (AUTO) 0.8 % (0.0-4.0); HEMOGLOBIN 11.4 g/dL (12.0-16.0); LYMPHOCYTES # (AUTO) 1.5 K/uL (2.5-16.5); LYMPHOCYTES % (AUTO) 23.8 % (20.5-51.1); MEAN CORPUSCULAR HEMOGLOBIN 25 pg (27-31); MEAN CORPUSCULAR HGB CONC 32 g/dL (33-37); MEAN CORPUSCULAR VOLUME 77.6 fL (80-94); MONOCYTES # (AUTO) 0.5 K/uL (0.8-1.0); MONOCYTES % (AUTO) 7.7 % (1.7-9.3); NEUTROPHILS # (AUTO) 4.3 K/uL (1.8-7.7); NEUTROPHILS % (AUTO) 67.1 % (42.2-75.2); PLATELET COUNT (AUTO) 401 K/uL (140-450); RED BLOOD CELL COUNT(AUTO) 4.65 MIL/uL (4.20-5.40); RED CELL DISTRIBUTION WIDTH 16.8 % (11.6-13.7); WHITE BLOOD COUNT (AUTO) 6.5 K/uL (4.8-10.8)
--- NOTE | 2022-03-19 07:57 | NUR ---
US AT BEDSIDE
[2022-03-19 08:14] LABS: ALBUMIN 3.4 g/dL (3.4-5.0); CARBON DIOXIDE 29.8 mmol/L (21-32); CREATININE 0.7 mg/dL (0.6-1.3); POTASSIUM 3.8 mmol/L (3.5-5.1); TOTAL BILIRUBIN 0.4 mg/dL (0.0-1.0)
--- NOTE | 2022-03-19 09:19 | NUR ---
PT C/O PAIN 12/10. ERMD NOTIFIED
[2022-03-19 09:20] VITALS: BP 136/90
[2022-03-19] MEDS ORDERED: FAMOTIDINE 20 MG/2 ML VIAL IVP ONE (09:20)
[2022-03-19] MEDS ORDERED: NACL 0.9% 1,000 ML IV ONE (09:20)
[2022-03-19 09:57] LABS: APPEARANCE,URINE SL CLOUDY (CLEAR); BILIRUBIN,URINE NEGATIVE (NEGATIVE); BLOOD, URINE TRACE-L (NEGATIVE); COLOR,URINE YELLOW (YELLOW); LEUKOCYTE ESTERASE ,URINE NEGATIVE (NEGATIVE); NITRITE, URINE NEGATIVE (NEGATIVE); PH,URINE 6.5 (5.0-9.0); UGLUCOSE NEGATIVE (NEGATIVE)
[2022-03-19 10:10] LABS: RBC,URINE 0-5 /HPF (0-5); WBC,URINE 0-5 /HPF (0-5)
[2022-03-19] MEDS ORDERED: OMEP40EC24 PO (10:36)
[2022-03-19] MEDS ORDERED: BEN10 PO (10:36)
[2022-03-19] MEDS ORDERED: SUCR1TAB35 PO (10:36)
--- NOTE | 2022-03-19 10:40 | NUR ---
Patient discharged with v/s stable. Written and verbal after care instructions given and explained. Patient alert, oriented and verbalized understanding of instructions. Ambulatory with steady gait. All questions addressed prior to discharge. ID band removed. Patient advised to follow up with PMD. Patient educated on indication of medication including possible reaction and side effects. Opportunity to ask questions provided and answered.
== END 2022-03-19 10:40 | disposition home or self-care (01) ==
LOC: MED 06:53
DX: K21.9 Gastro-esophageal reflux disease without esophagitis (principal); D50.9 Iron deficiency anemia, unspecified; R11.2 Nausea with vomiting, unspecified; J45.909 Unspecified asthma, uncomplicated; E03.9 Hypothyroidism, unspecified; Z79.899 Other long term (current) drug therapy
CPT/HCPCS: 36415; 76705; 80053; 81001; 81025; 82150; 83690; 85025; 96361; 96374; 96375; 96376; 99284; J2270; J2405; J3490; J7030; Q0092

== ENCOUNTER 2022-06-18 21:27 | Emergency (ER) | payer OTHER ==
[~2022-06-18 21:27] MED LIST changes: +BEN10 PO; +OMEP40EC24 PO; +SUCR1TAB35 PO
--- NOTE | 2022-06-18 22:20 | NUR ---
CALLED TO TRIAGE, NO ANSWER
--- NOTE | 2022-06-18 22:36 | NUR ---
CALLED TO TRIAGE, NO ANSWER
--- NOTE | 2022-06-18 22:47 | NUR ---
CALLED TO TRIAGE, NO ANSWER. PT LWBS
== END 2022-06-18 22:47 | disposition left against medical advice (07) ==
LOC: MED 21:27
DX: R51.9 Headache, unspecified (principal); Z53.21 Procedure and treatment not carried out due to patient leaving prior to being seen by health care provider

== ENCOUNTER 2022-07-18 22:12 | Emergency (ER) | payer OTHER ==
[~2022-07-18] VITALS: Ht 154.9 cm; Wt 67.1 kg
[2022-07-18 22:15] VITALS: BP 139/90
--- NOTE | 2022-07-18 22:23 | NUR ---
Dr. Birch examining patient in triage room.
[2022-07-18] MEDS ORDERED: MORPHINE SULFATE 4 MG/ML SYR IM ONE (22:25)
[2022-07-18 22:35] LABS: APPEARANCE,URINE HAZY (CLEAR); BILIRUBIN,URINE NEGATIVE (NEGATIVE); BLOOD, URINE TRACE-I (NEGATIVE); COLOR,URINE YELLOW (YELLOW); LEUKOCYTE ESTERASE ,URINE NEGATIVE (NEGATIVE); NITRITE, URINE NEGATIVE (NEGATIVE); PH,URINE 6.5 (5.0-9.0); UGLUCOSE NEGATIVE (NEGATIVE)
[2022-07-18 23:06] LABS: RBC,URINE 0-5 /HPF (0-5)
[2022-07-18] MEDS ORDERED: cefTRIAXone 1,000 MG in LIDOCAINE MPF 1% 2.1 ML IM ONE (23:15)
[2022-07-18] MEDS ORDERED: cefTRIAXone 1,000 MG VIAL ONE (23:22)
[2022-07-18] MEDS ORDERED: LIDOCAINE MPF 1% 5 ML ONE (23:22)
[2022-07-18] MEDS ORDERED: NITR100C7 PO (23:41)
[2022-07-18 23:48] VITALS: BP 125/90
== END 2022-07-18 23:48 | disposition home or self-care (01) ==
LOC: MED 22:12
DX: N39.0 Urinary tract infection, site not specified (principal); R51.9 Headache, unspecified; J45.909 Unspecified asthma, uncomplicated; K21.9 Gastro-esophageal reflux disease without esophagitis; Z79.899 Other long term (current) drug therapy; Z79.1 Long term (current) use of non-steroidal anti-inflammatories (NSAID); Z79.2 Long term (current) use of antibiotics; Z79.891 Long term (current) use of opiate analgesic; Z88.8 Allergy status to other drugs, medicaments and biological substances; Z88.6 Allergy status to analgesic agent
CPT/HCPCS: 81001; 81025; 87086; 96372; 99284; J0696; J2001; J2270

== ENCOUNTER 2022-08-04 13:01 | Emergency (ER) | payer OTHER ==
[~2022-08-04] VITALS: Ht 154.9 cm; Wt 73.5 kg
[2022-08-04 13:12] VITALS: BP 135/85
--- NOTE | 2022-08-04 13:22 | NUR ---
PT AMBULATED TO ER BED 5
[2022-08-04 15:01] LABS: BILIRUBIN,URINE NEGATIVE (NEGATIVE); BLOOD, URINE 1+ (NEGATIVE); LEUKOCYTE ESTERASE ,URINE NEGATIVE (NEGATIVE); NITRITE, URINE NEGATIVE (NEGATIVE); UGLUCOSE NEGATIVE (NEGATIVE)
[2022-08-04 15:31] LABS: APPEARANCE,URINE HAZY (CLEAR); COLOR,URINE STRAW (YELLOW); RBC,URINE 0-5 /HPF (0-5)
[2022-08-04 15:32] LABS: WBC,URINE 0-5 /HPF (0-5)
[2022-08-04] MEDS ORDERED: NITR100C7 PO (15:41)
[2022-08-04 15:50] VITALS: BP 135/85
== END 2022-08-04 15:51 | disposition home or self-care (01) ==
LOC: MED 13:01
DX: N39.0 Urinary tract infection, site not specified (principal); J45.909 Unspecified asthma, uncomplicated; K21.9 Gastro-esophageal reflux disease without esophagitis; Z88.5 Allergy status to narcotic agent; Z88.8 Allergy status to other drugs, medicaments and biological substances; Z79.899 Other long term (current) drug therapy
CPT/HCPCS: 81001; 81025; 87086; 87491; 99283